=== PATIENT | male | born 1965 | race Caucasian/White ===

== ENCOUNTER 2021-05-11 16:16 | Emergency (ER) | payer OTHER ==
[~2021-05-11] VITALS: Ht 177.8 cm; Wt 81.7 kg
[2021-05-11] MEDS ORDERED: COSENTYX P150 MG/11 SUBQ (16:25)
[2021-05-11 18:18] LABS: ABSOLUTE BASOPHILS 0.1 thou/uL (0.0-0.2); ABSOLUTE EOSINOPHILS 0.1 thou/uL (0.0-0.7); ABSOLUTE LYMPHOCYTES 2.2 thou/uL (0.8-5.3); ABSOLUTE MONOCYTES 1.3 thou/uL (0.0-1.2); ABSOLUTE NEUTROPHILS 10.5 thou/uL (1.6-8.1); BASOPHILS 0.4 %; EOSINOPHILS 0.8 %; HEMATOCRIT 44.5 % (42.0-52.0); HEMOGLOBIN 14.9 gm/dL (14.0-18.0); LYMPHOCYTES 15.6 %; MCH 31.2 pg (26.0-34.0); MCHC 33.4 g/dL (28.0-37.0); MCV 93.4 fL (80.0-100.0); MONOCYTES 9.2 %; MPV 6.9 fl. (7.2-11.1); NUCLEATED RBCS 0 /100WBC; PLATELET COUNT* 287 thou/uL (150-400); RBC 4.77 mil/uL (4.50-6.00); WBC 14.2 thou/uL (4.0-11.0)
[2021-05-11 18:24] LABS: CALCIUM 8.8 mg/dL (8.5-10.1); POTASSIUM 4.5 mmol/L (3.5-5.1)
[2021-05-11 18:27] LABS: URINE BILIRUBIN NEGATIVE (Negative); URINE BLOOD 1+ (Negative); URINE CLARITY CLEAR; URINE COLOR YELLOW; URINE GLUCOSE-RANDOM NEGATIVE (Negative); URINE KETONES NEGATIVE (Negative); URINE LEUKOCYTES-REFLEX NEGATIVE (Negative); URINE NITRITE-REFLEX NEGATIVE (Negative); URINE PROTEIN NEGATIVE (Negative); URINE SPECIFIC GRAVITY 1.025 (1.005-1.030); URINE UROBILINOGEN 0.2 E.U./dl (0.2-1.0)
[2021-05-11 18:29] LABS: TOTAL BILIRUBIN 0.4 mg/dL (<0.1-1.0); TOTAL PROTEIN 7.5 g/dL (6.4-8.2)
[2021-05-11 18:48] LABS: BACTERIA-REFLEX None Seen /HPF (None Seen); CASTS None Seen /LPF (None Seen); CRYSTALS None Seen /LPF (None Seen); MUCUS None Seen strn/LPF (None Seen); SQUAMOUS 0-3 Few /LPF (0-3); URINE RBC 0-2 Rare /HPF (0-2)
[2021-05-11 18:49] LABS: URINE WBC-REFLEX 0-5 Rare /HPF (0-5)
[2021-05-11] MEDS ORDERED: FLEXERIL PO ×2 (21:35→21:45)
[2021-05-11] MEDS ORDERED: IBUPROFEN 800800 M1 PO ×2 (21:35→21:45)
[2021-05-11] MEDS ORDERED: HYDROCODON-ACE1 EAC7 PO ×2 (21:41→21:44)
[2021-05-11 21:56] VITALS: BP 148/90
--- NOTE | 2021-05-12 16:12 | EKG ---
[place] [address] ELECTROCARDIOGRAM REPORT Name: DIEGO MATHEWOLAS Room: [facility]#: [id number] Admission: 05/11/21 Attend Phys: Discharge: 05/11/21 Date of : 67 Date of Service: 05/11/211821 Report #: [id number] THIS REPORT FOR: //name// [facility] ED Test Date: 2021-05-11 Test Time: 18:22:41 Pat Name: HENRRY MATHEW Department: Room: Gender: [employer]: : [id number] Requested By: Teri Dominguez Order Number: [id number] MD: Kalin Middleton Measurements Intervals [place] Rate: 80 P: -29 MS: 185 QRS: -29 QRSD: 91 T: 35 QT: 392 QTc: 453 Interpretive Statements Sinus rhythm Borderline left axis deviation Baseline wander in lead(s) V2 No previous ECG available for comparison Electronically Signed On 05-12-2021 16:12:29 CDT by Kalin Middleton [email or web address] <ELECTRONICALLY SIGNED> By: Kalin Middleton MD, [facility] 05/12/21 1612 182 21 Kalin Middleton MD, [facility] /EPI
== END 2021-05-11 21:57 | disposition home or self-care (01) ==
LOC: M.ERS 16:16
PROVIDERS: Nurse Practitioner Family
DX: S29.012A Strain of muscle and tendon of back wall of thorax, initial encounter (principal); R10.9 Unspecified abdominal pain; F17.210 Nicotine dependence, cigarettes, uncomplicated; Z79.899 Other long term (current) drug therapy